=== PATIENT | female | born 1990 | race Caucasian/White ===

== ENCOUNTER 2020-09-03 19:40 | Emergency (ER) | payer OTHER ==
[~2020-09-03] VITALS: Ht 165.1 cm; Wt 55.8 kg
[~2020-09-03 19:40] MED LIST: ACET500 PO; HYDACE5 PO; IBUP600 PO; IBUP800 PO; MEDR150I; METR250 PO; OXYACE5T PO; PENVK250 PO; PENVK500 PO; PROACE100 PO; RXCLIN PO; SULTRIDS PO; TRAM50 PO; Veetids 500500 MG PO
[2020-09-03 20:27] LABS: BASOPHILS ABSOLUTE AUTO 0.06 K/mm3 (0.00-0.23); BASOPHILS PERCENT AUTO 1 % (0-2); EOSINOPHILS ABSOLUTE AUTO 0.24 K/mm3 (0.00-0.68); EOSINOPHILS PERCENT AUTO 2 % (0-6); Hematocrit 46.8 % (33.0-51.0); Hemoglobin 16.3 g/dL (11.5-16.0); IMMATURE GRAN ABSOLUTE AUTO 0.04 K/mm3 (0.00-0.10); IMMATURE GRAN PERCENT AUTO 0 % (0-1); LYMPHOCYTES ABSOLUTE AUTO 2.97 K/mm3 (0.84-5.20); LYMPHOCYTES PERCENT AUTO 28 % (21-46); MONOCYTES ABSOLUTE AUTO 0.92 K/mm3 (0.16-1.47); MONOCYTES PERCENT AUTO 9 % (4-13); Mean Corpuscular HGB 31.9 pg (26.0-34.0); Mean Corpuscular HGB Conc 34.8 g/dL (31.5-36.5); Mean Corpuscular Volume 92 fL (80-100); Mean Platelet Volume 9.7 fL (9.1-12.4); NEUTROPHILS ABSOLUTE AUTO 6.57 K/mm3 (1.96-9.15); NEUTROPHILS PERCENT AUTO 61 % (41-73); Platelet Count 373 K/mm3 (150-400); RDW Coefficient Variation 12.1 % (11.7-14.2); RDW Standard Deviation 41.1 fL (35.1-46.3); Red Blood Cell Count 5.11 M/mm3 (3.80-5.20)
[2020-09-03 20:43] LABS: Alanine Aminotransfer (ALT/SGP 36 U/L (12-78); Albumin, Blood 4.1 g/dL (3.4-5.0); Anion Gap 8 mmol/L (6-16); Aspartate Aminotrans (AST/SGOT 19 U/L (12-37); Blood Urea Nitrogen 10 mg/dL (8-24); Bun/Creatinine Ratio 18.8 (12.0-20.0); C-REACTIVE PROTEIN, EXT RANGE <0.290 mg/dL (0.000-0.300); CO2, Blood 24 mmol/L (21-32); Calcium, Blood 9.5 mg/dL (8.5-10.1); Chloride, Blood 107 mmol/L (98-108); Creatinine, Blood 0.53 mg/dL (0.40-1.00); Glomerular Filtration Rate >60 (60-); Glucose, Blood 130 mg/dL (70-99); Phosphorus, Blood 3.2 mg/dL (2.5-4.9); Potassium, Blood 3.7 mmol/L (3.5-5.5); Sodium, Blood 139 mmol/L (136-145)
[2020-09-03 20:45] LABS: Albumin/Globulin Ratio 1.1 (0.8-1.8); Alk Phos 78 U/L (50-136); Bilirubin, Total 0.5 mg/dL (0.1-1.0); Globulin, Blood 3.7 g/dL (2.2-4.0); Total Protein, Blood 7.8 g/dL (6.4-8.2)
[2020-09-03] MEDS ORDERED: LORA.5 PO (21:08)
[2020-09-03 22:41] LABS: Source, Urine Clean Catch
[2020-09-03 22:46] LABS: Blood, Urine Neg (Neg); Glucose Qualitative, Urine Neg (Neg); Ketones, Urine 3+ (Neg); Leukocyte Esterase, Urine 1+ (Neg); Nitrite, Urine Neg (Neg); Protein, Urine 1+ (Neg); Urobilinogen, Urine 2+ (Normal)
[2020-09-03 22:59] LABS: Appearance, Urine Clear (Clear); Bilirubin, Urine 1+ (Neg); Color, Urine Yellow (P-Yellow)
[2020-09-03 23:00] LABS: Amorphous Light (0-Heavy); Bacteria Mod /hpf; Mucus Mod (0-Heavy); Red Blood Cells, Urine Not Seen /hpf (0-2); Squamous Epithelial Cells Few /hpf (Few); White Blood Cells, Urine 0-2 /hpf (0-5)
[2020-09-03 23:23] LABS: Free Thyroxine 0.97 ng/dL (0.70-1.60); Thyroid Stimulating Hormone 1.05 uIU/mL (0.360-4.800); Triiodothyronine, Free 2.97 pg/mL (2.18-3.98)
== END 2020-09-03 23:38 | disposition home or self-care (01) ==
LOC: ER 19:40
PROVIDERS: Emergency Medicine; Physician Assistant
DX: R20.2 Paresthesia of skin (principal); F17.210 Nicotine dependence, cigarettes, uncomplicated; Z88.6 Allergy status to analgesic agent; Z88.1 Allergy status to other antibiotic agents; Z79.899 Other long term (current) drug therapy
CPT/HCPCS: 36415; 70450; 72125; 80053; 81001; 81025; 83735; 84100; 84439; 84443; 84481; 85025; 85651; 86140; 87086; 99284-25

== ENCOUNTER 2020-09-05 18:13 | Emergency (ER) | payer OTHER ==
[~2020-09-05] VITALS: Ht 165.1 cm; Wt 54.4 kg
[~2020-09-05 18:13] MED LIST changes: +LORA.5 PO
[2020-09-05 18:43] LABS: BASOPHILS ABSOLUTE AUTO 0.05 K/mm3 (0.00-0.23); BASOPHILS PERCENT AUTO 1 % (0-2); EOSINOPHILS ABSOLUTE AUTO 0.21 K/mm3 (0.00-0.68); EOSINOPHILS PERCENT AUTO 2 % (0-6); Hematocrit 44.6 % (33.0-51.0); Hemoglobin 15.7 g/dL (11.5-16.0); IMMATURE GRAN ABSOLUTE AUTO 0.04 K/mm3 (0.00-0.10); IMMATURE GRAN PERCENT AUTO 0 % (0-1); LYMPHOCYTES ABSOLUTE AUTO 2.17 K/mm3 (0.84-5.20); LYMPHOCYTES PERCENT AUTO 21 % (21-46); MONOCYTES PERCENT AUTO 8 % (4-13); Mean Corpuscular HGB 32.3 pg (26.0-34.0); Mean Corpuscular HGB Conc 35.2 g/dL (31.5-36.5); Mean Corpuscular Volume 92 fL (80-100); Mean Platelet Volume 9.9 fL (9.1-12.4); NEUTROPHILS PERCENT AUTO 68 % (41-73); Platelet Count 371 K/mm3 (150-400); RDW Coefficient Variation 11.9 % (11.7-14.2); RDW Standard Deviation 40.1 fL (35.1-46.3); Red Blood Cell Count 4.86 M/mm3 (3.80-5.20); White Blood Cell Count 10.27 K/mm3 (4.00-11.30)
[2020-09-05 19:14] LABS: Alanine Aminotransfer (ALT/SGP 32 U/L (12-78); Albumin, Blood 3.9 g/dL (3.4-5.0); Albumin/Globulin Ratio 1.1 (0.8-1.8); Alk Phos 70 U/L (50-136); Anion Gap 5 mmol/L (6-16); Aspartate Aminotrans (AST/SGOT 15 U/L (12-37); Bilirubin, Total 0.5 mg/dL (0.1-1.0); Blood Urea Nitrogen 8 mg/dL (8-24); Bun/Creatinine Ratio 17.7 (12.0-20.0); CO2, Blood 23 mmol/L (21-32); Calcium, Blood 9.7 mg/dL (8.5-10.1); Chloride, Blood 108 mmol/L (98-108); Creatinine, Blood 0.45 mg/dL (0.40-1.00); Globulin, Blood 3.5 g/dL (2.2-4.0); Glomerular Filtration Rate >60 (60-); Glucose, Blood 116 mg/dL (70-99); Potassium, Blood 3.7 mmol/L (3.5-5.5); Sodium, Blood 136 mmol/L (136-145); Total Protein, Blood 7.4 g/dL (6.4-8.2)
[2020-09-05 21:46] LABS: CPK Creatine Kinase 48 U/L (26-193); Magnesium, Blood 1.9 mg/dL (1.6-2.4)
[2020-09-05 21:55] LABS: Creatine Kinase MB <1.0 ng/mL (0.0-3.6); Creatine Kinase MB Index Unable to Calculate (0.0-4.0)
[2020-09-08 12:09] LABS: LYME IGG/IGM AB <0.91 ISR (0.00-0.90)
== END 2020-09-05 22:57 | disposition home or self-care (01) ==
LOC: ER 18:13
PROVIDERS: Emergency Medicine
DX: R53.1 Weakness (principal); F17.210 Nicotine dependence, cigarettes, uncomplicated; Z79.899 Other long term (current) drug therapy; Z88.6 Allergy status to analgesic agent; Z88.1 Allergy status to other antibiotic agents
CPT/HCPCS: 36415; 80053; 82550; 82553; 83735; 84443; 84703; 85025; 86618; 87476; 93005; 93010; 99284-25; J7120

== ENCOUNTER 2020-09-10 11:53 | Inpatient (IN) | payer OTHER ==
[~2020-09-10] VITALS: Ht 165.1 cm; Wt 52.5 kg
[2020-09-10 18:24] LABS: Automated CSF WBC Count 0.001 K/mm3 (0-5); WBC Count, CSF 1 /mm3 (0-5)
[2020-09-10 18:34] LABS: Glucose, CSF 52 mg/dL (40-70)
[2020-09-10 18:45] LABS: Appearance, CSF Clear (Clear); Color, CSF No Color (No Color)
[2020-09-10 18:47] LABS: RBC Count, CSF 0 /mm3 (0-0)
[2020-09-10] MEDS ORDERED: NAPR220 PO (19:42)
--- NOTE | 2020-09-10 21:07 | NUR ---
REPORT RECIEVED FROM YANICK HUNT RN AT 2100 AND AWAITING PT T/F TO ROOM 356.
--- NOTE | 2020-09-10 21:23 | NUR ---
PT T/F TO ROOM 356 [employer]IA [employer] AT 2104. PT ORIENTED TO ROOM AND CALL SYSTEM. SHE'S A/0X4 AND KNOWS TO CALL FOR ASSIST PRN. PT DENIED NEEDS/COMPLAINTS AT THIS TIME. TAP DANCER ([employer]) IN ROOM ASSISTING W/ADMIT.
[2020-09-11 00:37] LABS: Source, Urine Voided
[2020-09-11 00:39] LABS: Appearance, Urine Cloudy (Clear); Bilirubin, Urine Neg (Neg); Blood, Urine 2+ (Neg); Color, Urine Yellow (P-Yellow); Glucose Qualitative, Urine Neg (Neg); Ketones, Urine 3+ (Neg); Leukocyte Esterase, Urine 3+ (Neg); Nitrite, Urine Pos (Neg); Protein, Urine 2+ (Neg); Urobilinogen, Urine NORM (Normal); pH, Urine 6.5 (5.0-8.0)
[2020-09-11 00:45] LABS: Bacteria Many /hpf; Red Blood Cells, Urine 0-2 /hpf (0-2); Squamous Epithelial Cells Many /hpf (Few); White Blood Cells, Urine 50-100 /hpf (0-5)
--- NOTE | 2020-09-11 03:55 | NUR ---
UA OBTAINED AND SENT, POSSIBLE UTI OBSERVED W/CX PENDING AND ROCEPHIN COMMENCED.
--- NOTE | 2020-09-11 05:02 | NUR ---
OCTAGAM COMMENCED: VSS AND PT CURRENTLY DENIES LEIGH, NAUSEA, CHILL AND DYSPNEA BUT HAS PERSISTANT CRAMPING BACK PAIN UNCHANGED FROM BASELINE. OCTAGAM COMMENCED AT 30 ML/HR AND WILL INCREASE RATE PER EMAR TOLERATED. WCTM FOR S/S SIDE EFFECTS/ADVERSE REACTION.
[2020-09-11 05:08] LABS: BASOPHILS ABSOLUTE AUTO 0.02 K/mm3 (0.00-0.23); BASOPHILS PERCENT AUTO 0 % (0-2); EOSINOPHILS PERCENT AUTO 0 % (0-6); Hematocrit 46.4 % (33.0-51.0); IMMATURE GRAN ABSOLUTE AUTO 0.02 K/mm3 (0.00-0.10); IMMATURE GRAN PERCENT AUTO 0 % (0-1); LYMPHOCYTES PERCENT AUTO 14 % (21-46); MONOCYTES ABSOLUTE AUTO 0.28 K/mm3 (0.16-1.47); MONOCYTES PERCENT AUTO 4 % (4-13); Mean Corpuscular HGB 31.6 pg (26.0-34.0); Mean Corpuscular HGB Conc 34.5 g/dL (31.5-36.5); Mean Corpuscular Volume 92 fL (80-100); NEUTROPHILS ABSOLUTE AUTO 6.43 K/mm3 (1.96-9.15); NEUTROPHILS PERCENT AUTO 82 % (41-73); Platelet Count 405 K/mm3 (150-400); RDW Coefficient Variation 11.9 % (11.7-14.2); RDW Standard Deviation 40.1 fL (35.1-46.3); Red Blood Cell Count 5.07 M/mm3 (3.80-5.20); White Blood Cell Count 7.85 K/mm3 (4.00-11.30)
--- NOTE | 2020-09-11 05:28 | NUR ---
PT TOLERATING OCTAGAM INFUSION, VSS, AND RATE INCREASED TO 60 ML/HR.
[2020-09-11 05:47] LABS: Alanine Aminotransfer (ALT/SGP 31 U/L (12-78); Albumin, Blood 4.1 g/dL (3.4-5.0); Albumin/Globulin Ratio 1.1 (0.8-1.8); Alk Phos 64 U/L (50-136); Anion Gap 10 mmol/L (6-16); Aspartate Aminotrans (AST/SGOT 12 U/L (12-37); Bilirubin, Total 0.3 mg/dL (0.1-1.0); Blood Urea Nitrogen 10 mg/dL (8-24); Bun/Creatinine Ratio 22.3 (12.0-20.0); CO2, Blood 22 mmol/L (21-32); Calcium, Blood 9.6 mg/dL (8.5-10.1); Chloride, Blood 104 mmol/L (98-108); Creatinine, Blood 0.45 mg/dL (0.40-1.00); Globulin, Blood 3.6 g/dL (2.2-4.0); Glomerular Filtration Rate >60 (60-); Glucose, Blood 108 mg/dL (70-99); Potassium, Blood 3.9 mmol/L (3.5-5.5); Sodium, Blood 136 mmol/L (136-145); Total Protein, Blood 7.7 g/dL (6.4-8.2)
--- NOTE | 2020-09-11 06:12 | NUR ---
SUMMARY: A/OX4, CALLS APPROPRIATELY AND PLEASANT/COOPERATIVE W/CARE. HEPARIN GTT BEING MANAGED PER PHARMACY AND RATE INCREASED X2 TONIGHT, NOW RUNNING AT 18 UN/KG/HR (26.3 ML/HR). HE'S BEEN NPO SINCE OK FOR PROCEDURE ON SFA OCCLUSION TODAY. HE REMAINS NSR W/BBB AND 80'S BPM PER TELEMETRY W/KNOWN HX OF AFIB COMMENCED ON METOPROLOL. PT C/O R.LEG GROIN PAIN R/T OCCLUSION W/[place] EFFECTIVE AT RELIEVING IT. HE USED URINAL AT EOB AND IS SBA FOR DISTANCE. CAROTID DUPLEX COMPLETED THIS SHIFT, RESULTS PENDING. NO ACUTE CHANGES, VSS/AFEBRILE. PT SLEPT MAJORITY OF NOCTE W/O COMPLAINTS. WCTM AND REPORT TO DAY RN.
--- NOTE | 2020-09-11 06:35 | NUR ---
2ND VIAL OCTAGAM COMMENCED. PT CONT'S TO TOLERATE INFUSION WELL W/O ANY SIDE EFFECTS AND VITALS REMAIN STABLE.
--- NOTE | 2020-09-11 06:35 | NUR ---
SUMMARY: PT A/OX4, CALLS APPROPRIATELY AND IS PLEASANT/COOPERATIVE W/CARE. SHE HAS NEW POTENTIAL DX OF CIDP W/COBRA T/F TO [facility] PENDING FOR NEURO INTERVENTION. SYMPTOMS HAVE DEVELOPED X1 MONTH AND BEGAN W/NUMB/TINGLING IN HER TONGUE AND HANDS PROGRESSING TO GROSS EXT WEAKNESS AND RECENT INABILITY TO AMBULATE. TURN ASSIST PROVIDED PRN AND SHE'S A 2P [place] [facility] [place] UA OBTAINED AND SENT, POSS UTI OBSERVED AND ROCEPHIN RECIEVED THIS SHIFT. SHE ALSO REPORTS NEW ONSET SWALLOW DIFFICULTY, SHE IS NPO PENDING SPEECH TX EVAL. PT COMMENCED ON OCTAGAM THIS SHIFT W/2ND VIAL INFUSING AT THIS TIME, NO S/S SIDE EFFECTS OR REACTION OBSERVED. SHE IS ANXIOUS RE: NEW DX BUT DENIED NEEDING ATIVAN PRN. NO ACUTE CHANGES, VSS/AFEBRILE. WCTM AND REPORT TO DAY RN.
--- NOTE | 2020-09-11 15:42 | NUR ---
PATIENT REQUEST US TO CALL HER PCP AND LET THEM KNOW SHE IS IN HOSPITAL. CALLED [phone] AND ADVISED THEM SHE IS IN HOSPITAL AND WE ARE LOOKING TO GET HER IN W/SPECIALIST IN EITHER [place] OR [place]. PATIENT HAS APPT 09/13. APPT CANCELLED AND PATIENT CAN CALL WHEN OUT OF HOSPITAL TO MAKE F/U APPT.
--- NOTE | 2020-09-11 17:07 | NUR ---
PER DR.SNELL OSMAN TO ORDER NEPHROLOGY -- HIS BRAND COMMUNICATIONS MANAGER.
--- NOTE | 2020-09-11 17:12 | NUR ---
ALERT .ORIENTED. MAX 2 PERSON ASSIT FOR BSC. SOFT WHISPER VOICE. MEDICATED ONCE FOR BACK PAIN WHICH HAS BEEN CHRONIC SINCE THIS HAS STARTED ABOUT 1 MONTH AGO. MEDICATED FOR NAUSEA THAT STARTED TODAY. AWAITING TRANSFER TO [facility] WHEN THEY HAVE A BED. [facility]
[2020-09-11 18:08] LABS: IMMUNOGLOBULIN G, QN, SERUM 731 mg/dL (586-1602)
--- NOTE | 2020-09-12 06:07 | NUR ---
SUMMARY: A/OX4, CALLS APPROPRIATELY AND PLEASANT/COOPERATIVE W/CARE. SHE CONT'S TO HAVE GROSS EXTREMITY WEAKNESS W/NUMB/TINGING AND FINE MOTOR DEFECITS R/T PROBABLE CIDP. 2P MAX PIVOT ASSIST TO BSC REQUIRED AND LEGS ARE VERY UNSTEADY AND UNABLE TO FULLY BEAR WT. TURN SCHEDULE MAINTAINED AND EGGCRATE PLACED ON BED. SHE'S TOLERATING MECH SOFT DIET W/O S/S ASPIRATION OR CHOKING, SNACKS PROVIDED PRN. IV ABX PROVIDED THEN SL. IVIG TX BEING RECIEVED, TODAY WILL BE DAY 2 OF 5. COBRA T/F TO [facility] STILL PENDING FOR NEURO. ATIVAN PO PRN WAS PROVIDED AT HS PER PT REQUEST TO PROMOTE REST D/T HS IV SOLUMEDROL BEING RECIEVED W/DIFFICULTY SLEEPING. NO ACUTE CHANGES, VSS/AFEBRILE. WCTM AND REPORT TO DAY RN.
--- NOTE | 2020-09-12 09:00 | NUR ---
ADVISED FENTANYL WORKS FOR ABOUT 10 MIN PER PATIENT. PATIENT STARTED HAVING BACK PAIN AT ABOUT 1 MONTH AGO AND HAS GOTTEN PROGRESSIVELY WORSE. MD TO CHECK CHART.
[2020-09-12 09:09] LABS: ANGIOTENSIN-CONVERTING ENZYME 20 U/L (14-82)
[2020-09-12 12:09] LABS: VDRL, CSF Non Reactive (Non Rea:<1:1)
--- NOTE | 2020-09-12 12:10 | NUR ---
patient left for radiology about 11:05 and just came back about 10 minutes ago. iv ig started at 30ml/hr as per pharmacy recommendation.
[2020-09-12 13:09] LABS: MYELIN BASIC PROTEIN, CSF 1.5 ng/mL (0.0-3.7)
[2020-09-12 13:56] LABS: SARS-Cov-2 (COVID-19) PCR, MMC NEGATIVE (NEGATIVE)
--- NOTE | 2020-09-12 14:11 | NUR ---
REPORT TO JAYLIN AT [facility]. ANSWER ALL QUESTIONS. PATIENT AWARE GOING TO [facility] TODAY RM [phone].[id number]
--- NOTE | 2020-09-12 15:59 | NUR ---
IN AMBULANCE CART TO AMBULANCE. REPORT TO EMT. IV INTACT.
--- NOTE | 2020-09-12 18:07 | NUR ---
JAYLIN MICHEL FROM [employer] CALLS REQUESTING ALL REPORTS FROM IMAGING--STS COULD NOT GET DISC TO WORK AND REQUEST EMAR FOR MEDS. FAX TO [phone] ATTN; JAYLIN.
== END 2020-09-12 16:00 | disposition short-term general hospital (02) | DRG 74 ==
LOC: ER 11:53 → MEDS 19:49
PROVIDERS: Emergency Medicine; Internal Medicine; ADMIT Internal Medicine
PROC: 009U3ZX Drainage of Spinal Canal, Percutaneous Approach, Diagnostic (ICD-10-PCS; principal; 2020-09-10)
DX: G61.81 Chronic inflammatory demyelinating polyneuritis (principal); N39.0 Urinary tract infection, site not specified; Z20.822 Contact with and (suspected) exposure to COVID-19; R13.10 Dysphagia, unspecified; F17.210 Nicotine dependence, cigarettes, uncomplicated; Z88.1 Allergy status to other antibiotic agents; Z98.818 Other dental procedure status
CPT/HCPCS: 36415; 62270; 70553; 72129; 72132; 72156; 74230; 80053; 81001; 82164; 82787; 82945; 83516; 83873; 84157; 85025; 86592; 86618; 87070; 87086; 87205; 89051; 92610; 92611; 96374-59; 99285-25; A9270; A9579; J0696; J1568; J1650; J2405; J2930; J3010; J7050; Q9967; U0004